=== PATIENT | female | born 1960 | race Caucasian/White ===

== ENCOUNTER 2023-03-06 01:43 | Outpatient (CLI) | payer OTHER, SELFPAY ==
[2023-03-06 11:18] LABS: HCT 44.3 % (36.0-46.0); HGB 15.4 g/dL (11.2-15.7); MCH 31.6 pg (27.0-33.0); MCHC 34.8 % (32.0-36.0); MCV 91 fL (80-95); MPV 10.2 fL (8.0-11.0); Platelet Count 321 10^3/uL (130-400); RBC 4.88 10^6/uL (3.93-5.22); RDW 12.9 % (11.7-14.6); RDW-SD 42.7 fL; WBC 9.06 10^3/uL (4.4-10.8)
[2023-03-06 11:50] LABS: Anion Gap 8.6 mmol/L (3-11); BUN 19 mg/dL (7-18); CO2 29.4 mmol/L (21.0-32.0); Calcium 9.6 mg/dL (8.5-10.1); Chloride 102 mmol/L (98-107); Glucose 91 mg/dL (74-106); Potassium 3.9 mmol/L (3.5-5.1); Sodium 140 mmol/L (136-145)
== END 2023-03-06 01:44 | disposition home or self-care (01) ==
LOC: LBO 01:43
PROVIDERS: Visit Provider Student in an Organized Health Care Education/Training Program
DX: M25.562 Pain in left knee (principal); M17.12 Unilateral primary osteoarthritis, left knee; Z01.818 Encounter for other preprocedural examination; Z01.812 Encounter for preprocedural laboratory examination
CPT/HCPCS: 36415; 80048; 85027

== ENCOUNTER 2023-03-06 10:37 | Outpatient (CLI) | payer OTHER, SELFPAY ==
--- NOTE | 2023-03-06 10:00 | DI.RAD_ITS ---
Exam(s) XR STANDING ALIGNMENT EXAM: XR STANDING ALIGNMENT CLINICAL HISTORY: TKR planning. TECHNIQUE: 2D digital imaging was performed. Four images were obtained. COMPARISON: DX XR KNEE 4V LT* from 03/21/2022 DX XR KNEE 4V RT* from 03/21/2022 FINDINGS: BONES: The hips are well maintained. There moderate severe degenerative changes of the knees bilater ally. Findings include joint space narrowing and periarticular spurring which is most marked in the medial femoral tibial joint. Chondrocalcinosis in the medial femoral tibial joints is noted bilatera lly which can be seen with CPPD arthropathy. The ankles are well maintained.There is no significant leg length discrepancy. SOFT TISSUE: Normal. IMPRESSION: Moderately severe osteoarthritis of the knees bilaterally. DATA REPOSITORY: RADIATION DOSE DELIVERED:
== END 2023-03-06 10:38 | disposition home or self-care (01) ==
LOC: DIORS 10:38
PROVIDERS: PCP Nurse Practitioner Family; Referring Provider Nurse Practitioner Family; Visit Provider Physician Assistant
DX: M17.12 Unilateral primary osteoarthritis, left knee (principal)
CPT/HCPCS: 77073

== ENCOUNTER 2023-03-12 07:12 | Day surgery (SDC) | payer OTHER, SELFPAY ==
[2023-03-12] VITALS (10 sets, daily range): BP systolic 88–159; BP diastolic 32–69; PULSE 57–70; RESP 12–18; TEMP 36.1–36.6; O2SAT 93–97; BMI 40.5
[2023-03-12] MEDS: Celecoxib 200 MG CAP 400 MG PO (07:42)
[2023-03-12] MEDS: Gabapentin 300 MG CAP PO (07:43)
[2023-03-12] MEDS: Acetaminophen 500 MG TAB 1000 MG PO ×2 (07:43→15:36)
[2023-03-12] MEDS: Lactated Ringers 1,000 ML 80 ML IV (07:53)
--- NOTE | 2023-03-12 09:52 | W.ANESPRE ---
General Info Date of Service Date Performed: 03/12/23 Height: 5 ft 2 in Weight: 100.5 kg Body Mass Index (BMI): 40.5 Surgical Procedure: Operation Date: 03/12/23 10:10 Proposed Procedure Side Surgeon p Knee Total Arthroplasty w/OrthAlign, Cementless CR Left Felix Qureshi MD Meds Allergies and Home Medications Allergies Allergy/AdvReac Type Severity Reaction Status Date / Time No Known Allergies Allergy Verified 03/12/23 07:34 Home Medication Medication Instructions Recorded chlorthalidone 25 mg tablet 12.5 mg PO DAILY 01/23/23 evening primrose oil 500 mg capsule 1,000 mg PO DAILY 01/23/23 fluoxetine 40 mg capsule 80 mg PO DAILY 01/23/23 lisinopril 20 mg tablet 20 mg PO DAILY 01/23/23 omega-3 fatty acids 1,000 mg 1,000 mg PO DAILY 01/23/23 capsule omeprazole 20 mg capsule,delayed 20 mg PO DAILY 01/23/23 release potassium chloride 10 mEq 10 meq PO DAILY 01/23/23 capsule,extended release semaglutide 7 mg tablet (Rybelsus) 7 mg PO DAILY 01/23/23 Current Visit Medications: Current Medications Generic Name Dose Route Start Last Admin Trade Name Freq PRN Reason Stop Dose Admin Acetaminophen 1,000 mg 03/12/23 06:00 03/12/23 07:43 Acetaminophen 500 Mg Tab PO 03/12/23 18:00 1,000 mg PREOP NEPTALI Administration Celecoxib 400 mg 03/12/23 06:00 03/12/23 07:42 Celecoxib 200 Mg Cap PO 03/12/23 18:00 400 mg PREOP NEPTALI Administration Gabapentin 300 mg 03/12/23 06:00 03/12/23 07:43 Gabapentin 300 Mg Cap PO 03/12/23 18:00 300 mg PREOP NEPTALI Administration Tranexamic Acid 1,000 mg/ 60 mls @ 360 mls/hr 03/12/23 06:00 Sodium Chloride IVPB 03/12/23 18:00 PREOP NEPTALI Ringer's Solution 1,000 mls @ 80 mls/hr 03/12/23 06:00 03/12/23 07:53 IV 04/10/23 23:59 80 mls/hr INFUSION NEPTALI Administration Cefazolin Sodium/Dextrose 2 gm in 50 mls @ 100 mls/hr 03/12/23 06:00 Ancef Duplex IVPB 03/12/23 16:00 PREOP NEPTALI IV Miscellaneous Supplies 1 each 03/12/23 06:00 Iv Access IV 04/10/23 23:59 DIRECTED NEPTALI Sodium Chloride 0 ml 03/12/23 06:00 Normal Saline Flush 10 Ml Syr IV 04/10/23 23:59 PRN PRN Sodium Chloride 0 ml 03/12/23 06:00 Normal Saline 10 Ml Vial IJ 04/10/23 23:59 DIRECTED PRN Sterile Water 0 ml 03/12/23 06:00 Water,Injection,Sterile 10 Ml Vial IJ 04/10/23 23:59 DIRECTED PRN PFSH Active Problems Active Problems: Problem Status Onset Code Hypertension I10 Depression F32.A Obesity E66.9 GERD (gastroesophageal reflux disease) K21.9 Localized osteoarthritis of right knee M17.11 Unilateral primary osteoarthritis, left knee M17.12 Medical History Medical History Comments:: Pt. stated when she had her hernia repair, she was told it was hard to wake her up Surgical History Surgical History History of LAVH Hx of appendectomy Hx of cholecystectomy Hx of hernia repair Tobacco Smoking/Tobacco Use Status: Never Alcohol Alcohol Intake: current Alcohol intake frequency: holidays/special occasions only Alcohol type: hard liquor Substance Use Substance use: Never Substance use type: does not use Vital Signs and Lab Results Vital Signs Most Recent Vital Signs in EMR: Most Recent Vital Signs Temp Pulse Resp BP Pulse Ox 36.3 C L 70 17 159/64 H 96 03/12/23 07:15 03/12/23 07:15 03/12/23 07:15 03/12/23 07:15 03/12/23 07:15 Lab Results Blood Type / Crossmatch: No Data to Display Complete Blood Count: White Blood Count 9.06 10^3/uL (4.4-10.8) 03/06/23 11:00 Red Blood Count 4.88 10^6/uL (3.93-5.22) 03/06/23 11:00 Hemoglobin 15.4 g/dL (11.2-15.7) 03/06/23 11:00 Hematocrit 44.3 % (36.0-46.0) 03/06/23 11:00 Platelet Count 321 10^3/uL (130-400) 03/06/23 11:00 Complete Metabolic Panel: Sodium 140 mmol/L (136-145) 03/06/23 11:00 Potassium 3.9 mmol/L (3.5-5.1) 03/06/23 11:00 Chloride 102 mmol/L (98-107) 03/06/23 11:00 Carbon Dioxide 29.4 mmol/L (21.0-32.0) 03/06/23 11:00 BUN 19 mg/dL (7-18) H 03/06/23 11:00 Creatinine 1.0 mg/dL (0.55-1.02) 03/06/23 11:00 Est GFR (CKD-EPI 2020) 63.30 (mL/min/1.73m2) 03/06/23 11:00 Calcium 9.6 mg/dL (8.5-10.1) 03/06/23 11:00 Glucose 91 mg/dL (74-106) 03/06/23 11:00 Liver Function Panel: No Data to Display Coagulation Panel: No Data to Display Cardiac Panel: No Data to Display Arterial Blood Gas: No Data to Display Venous Blood Gas: No Data to Display Pancreas Panel: No Data to Display Thyroid Panel: No Data to Display Infectious Disease: No Data to Display Blood Cultures: No Data to Display Toxicology Panel: No Data to Display Anesthesia Assessment and Plan Anesthesia History Personal History: Delayed Emergence and Other Family History: No Family History of Anesthesia Complications Exercise Tolerance Exercise Tolerance: Metabolic Equivalents>4 Cardiac & Pulmonary Exam Cardiac Exam: Normal S1/S2 Heart Sounds Pulmonary Exam: Clear Bilateral Breath Sounds Implantable Cardiac Device Does patient have a Pacemaker or an ICD?: No Airway Exam Known Difficult Airway: No Mallampati Class: 1 Mouth Opening: Normal (> 3cm) Thyromental Distance: Greater than 3 cm Neck Range of Motion: Full ROM Neck Circumference: Normal Teeth Condition: Normal Dentition ASA Classification ASA Score: ASA 3 Emergency Case?: No NPO Status NPO Status: NPO Clears >2 hours, Solids >8 hours Anesthesia Plan Resuscitation Status: Full Code Anesthesia Technique: Spinal Anesthesia Airway Planned: Natural Airway Pain Management: Surgeon and patient request nerve block Monitors Used: Standard Monitors Preoperative Comments:: 63 yo female for TKA. Sig PMHx: HTN, GERD (on alternating other day PPI/H2), never smoker, occ EtOH. Previous Anes: - none her, stated at [facility] long time to wake up.
--- NOTE | 2023-03-12 11:26 | PDOC.DSDIS_ITS ---
Date of service: 03/12/23 Time of Service: 11:26 Discharge Plan Disposition Patient Disposition: Home Condition: Good Discharge Details Reason For Visit: L TKR Attending Provider: Felix Qureshi Primary Care Provider: Anna Mcfarlane Home Meds and New Rx's Prescriptions: New celecoxib 200 mg capsule 200 mg PO BID Qty: 60 0RF aspirin 81 mg tablet,delayed release (DR/EC) 81 mg PO BID Qty: 60 0RF acetaminophen 500 mg tablet 1,000 mg PO TID Qty: 90 3RF dexamethasone 4 mg tablet 4 mg PO DAILY Qty: 2 0RF gabapentin 300 mg capsule 300 mg PO QHS Qty: 14 0RF oxycodone 5 mg tablet 5 mg PO Q4H MDD 6 tabs PRN (Reason: pain) Qty: 20 0RF Continued lisinopril 20 mg tablet 20 mg PO DAILY chlorthalidone 25 mg tablet 12.5 mg PO DAILY omeprazole 20 mg capsule,delayed release(DR/EC) 20 mg PO DAILY fluoxetine 40 mg capsule 80 mg PO DAILY Rybelsus 7 mg tablet 7 mg PO DAILY potassium chloride 10 mEq capsule, extended release 10 meq PO DAILY evening primrose oil 500 mg capsule 1,000 mg PO DAILY Rx Instructions: give with meal/snack omega-3 fatty acids 1,000 mg capsule 1,000 mg PO DAILY Discharge Instructions Additional Instructions: Total Knee Discharge Instructions Activity: The most important activity is to walk and to work on gentle motion (both flexion and extension). You should try to take short walks a few times a day. It is important that when resting you work on keeping the knee straight. Avoid putting a pillow behind the knee as this will encourage flexion. Work on range of motion exercises as provided by Physical Therapy. - Start outpatient physical therapy within 2 weeks. - You should wear the KAYLA hose on both legs for 2 weeks. You may remove these at night. You may also use any compression sock in place of the KAYLA hose. - Utilize [employer] to review exercises, see videos on exercises and obtain basic information pertaining to your surgery and your recovery. Dressing: Remove the Je wrap by 2 days after your surgery and put on the KAYLA stocking given to you from the hospital. Keep the surgical dressing (underneath the JE wrap) in place for at least one week. After the first week it may be removed and replaced with light gauze and tape or nothing. The wound and dressing may get wet after 3 days but avoid soaking the dressing or otherwise it will need to be changed. Many people prefer covering the dressing with cling wrap (saran wrap) to minimize it from getting soaked. If it gets wet, just pat dry. If it starts to peel off then it will need to be changed. Medications: - You should take Tylenol and anti-inflammatory Celebrex as your primary pain control medications. If the Celebrex is too expensive or not covered, please call the office for another alternative (Advil/Ibuprofen or Naproxen/Aleve) - You have been prescribed a stronger pain medication Oxycodone for breakthrough pain, take as needed as prescribed. - You will continue your omeprazole to help reduce stomach acid and reflux. - You have been prescribed Gabapentin to take at night for restlessness and nerve pain. - You will be taking Aspirin 81mg twice a day for DVT prevention unless instructed otherwise. - You have also been prescribed Decadron to take to control post-operative nausea and pain. You will start this tomorrow. - If you have constipation you should take Colace or Miralax (both [id number]). It takes most people 3-4 days to have a bowel movement. Follow-up: 2 weeks If you have any acute concerns or questions, please do not hesitate to contact the office at [phone]. You may contact Dr. Qureshi with any questions after hours through the hospital at [phone] or on his cell phone at [phone]. Stand Alone Forms: Anesthesia Discharge Inst., Deyas.Nerve Block Instructions, Minh Fischer ([facility]) Referrals: Felix Qureshi MD [ [facility] STAFF PHYSICIAN] - Equipment/Supplies: Walker Activity:: Activity as Tolerated Shower/Bathe:: 72 hours Diet:: As Tolerated Discharge Orders Discharge Orders: Discharge Order (Routine); Ordered 03/12/23 Ordered By: Guanaco Campos DS: Diagnosis Discharge Diagnosis (1) Unilateral primary osteoarthritis, left knee: Status: Acute
[2023-03-12] MEDS: ceFAZolin 2 GM/50 ML BAG IVPB (11:40)
--- NOTE | 2023-03-12 13:09 | W.ANESNERVE ---
Nerve Block Single Injection Procedure Date and Time Date Performed: 03/12/23 Procedure Start: 11:18 Location Where Procedure Performed Procedure Location: Day Surgery Unit Reason Performed: Postoperative Analgesia Requesting Provider: Felix Qureshi Timeout Performed Timeout Performed: Yes Monitoring Used ECG, Blood Pressure, SpO2 and See EMR for corresponding vital signs Sterility Sterility: Hand Hygiene, Surgical Cap, Surgical Mask, Sterile Gloves and Chlorhexidine Sedation Given During Procedure Sedation Given (Indicate Dose Given): Versed IV Dose:: 2mg Patient Mental Status Patient Mental Status: Sedate with meaningful communication Nerve Block 1st Nerve Block: Laterality: Left Block Type: Adductor Canal Ultrasound Image Saved?: Yes Needle / Catheter Used: 100mm SonoPlex II Local Anesthetic Bolus (Indicate Dose Given): None, Lidocaine used for local infiltration of skin, Injected in 3-5ml increments after negative blood aspiration and Bupivacaine 0.25% Dose:: 15 mL Additives (Indicate Dose Given): None Ultrasound: Sterile probe cover and gel used Nerve Stimulator: Supplement to Ultrasound use and No twitch or parasthesia noted < 0.5 mA Paresthesia: None Procedure Tolerated: No Complications Procedure Outcome: Successful Performed By: Gem Ramos Other (not listed above): First attempt by CLARE Stuart then completed by Gem Ramos CRNA.
--- NOTE | 2023-03-12 14:32 | W.ANESPOSTOP ---
Postoperative Evaluation Date, Time and Location Date Performed: 03/12/23 Time Performed: 14:32 Patient Location: PACU Vital Signs Most Recent Imported Vital Signs: Most Recent Vital Signs Temp Pulse Resp BP Pulse Ox 36.5 C 59 L 12 120/51 L 97 03/12/23 14:19 03/12/23 14:19 03/12/23 14:19 03/12/23 14:19 03/12/23 14:19 Pain Score Most Recent Pain Score: Most Recent Pain Score Pain Level 0 03/12/23 14:19 Assessment Mental Status: Awake (Alert & Oriented to Patient Baseline) Airway and Respiratory Function: Patent airway with normal (patient baseline) respiratory exam Cardiovascular Function: Hemodynamically Stable Hydration Status: Adequately Hydrated Nausea & Vomiting: No Nausea or Vomiting Pain: Pt. Denies Any Pain Peripheral Nerve Block: Patient did not receive a nerve block
[2023-03-12] MEDS: oxyCODONE 5 MG TAB PO (15:37)
--- NOTE | 2023-03-12 15:56 | PT.INIE ---
PT Notes Visit Reasons: L TKR Physical Therapy Day Surgery Initial Evaluation Date: 03/12/2023 Referring Doctor: LETY Ch PT Orders: PT CONSULT: S/P Ortho Surgery Precautions: WBAT on the left LE with AD. Patient Profile/Admitting Diagnosis: Leslye is a 63-year-old female with primary unilateral osteoarthritis of the left knee and is status post left total knee arthroplasty on postoperative day 0. PMHX: Unilateral primary OA of the L knee Social History/Home Situation: Lives alone in a private home with 3 steps to enter with rails on both sides. Daughter Gwendolyn will be with her mother as patient recovers at home. Equipment Owned/DME: None Subjective: Reports pain on the quadriceps muscle on her thigh, rates pain level at 4/10 at rest and 2/10 with walking activity Objective: General Observation: Seated on bedside chair. KODI wraps to L: LE. Cryocuff to L knee. TEDS to R leg. Mental Status: Alert and oriented x4 Pain: As above ROM: Right Lower Extremity: Hip flexion WFL. Hip abduction WFL. Knee flexion WFL. Ankle dorsiflexion WFL. Ankle plantarflexion WFL. Left Lower Extremity: Hip flexion WFL. Hip abduction WFL. Knee flexion -45 to 90 degrees. Extension -45 degrees . Ankle dorsiflexion WFL. Ankle plantarflexion WFL. Strength: Right Lower Extremity: Hip flexors 4/5. Hip abductors 4/5. Knee flexors 3-/5. Knee extensors 3-/5. Ankle dorsiflexors 4/5. Ankle plantarflexors 4/5. Left Lower Extremity:Hip flexors 5/5. Hip abductors 5/5. Knee flexors 5/5. Knee extensors 5/5. Ankle dorsiflexors 5/5. Ankle plantarflexors 5/5 Sensation: Intact as to pain and light pressure in B LE Bed Mobility/Transfers: Sit to stand contact-guard assist Stand to sit standby assist Bed to chair standby assist Gait: Tolerated level surface ambulation of 150 feet using front wheeled walker with step to gait pattern requiring contact-guard assist. Reports decreasing pain report in the anterior distal thigh down to 2/10. No SOB. No LOB. Nurse Vandana assisting with wheelchair follow for safety. Balance: Static Sitting: Normal Dynamic Sitting: Normal Static Standing: Fair Dynamic Standing: Fair Special Tests: Mobility Limitations Standardized Measure [facility] AM-PAC 6 clicks Basic Mobility Inpatient Short Form: Raw Score: 21 CMS Score: 29% deficit Informed Consent/Education: Patient instructed in purpose of PT consult. Packet containing TKA exercise protocol has been given to patient. Education and training on initial set of exercises that can be done at home have been completed with patient. SREEDHAROR RE-ED: Facilitated postopreative engagement of B LE musculature to safely perform bed mobility, transfers, level surface ambulation, and stair negotiation using FWW. Instructed patient and daughter with correct and safe performance of all exercises for the first 2 weeks to maintain joint flexibility, glutes facilitate incisional healing, and wound progress mobility level: Access Code: [email or web address] URL: [email or web address] Date: 03/12/2023 Prepared by: Bambi Fernandes Exercises - Supine Quadricep Sets - 1 x daily - 7 x weekly - 1 sets - 10 reps - 5 hold - Supine Heel Slide - 1 x daily - 7 x weekly - 1 sets - 10 reps - 5 hold - Supine Ankle Pumps - 1 x daily - 7 x weekly - 1 sets - 10 reps - 5 hold - Small Range Straight Leg Raise - 1 x daily - 7 x weekly - 1 sets - 10 reps - 5 hold - Seated March - 1 x daily - 7 x weekly - 1 sets - 10 reps - 5 hold Assessment: When needed requires use of front wheeled walker to maximize independence and reduce fall risk. Patient presents with clinical signs and symptoms consistent with current/admitting diagnoses that have resulted to mobility limitations, gait instability, generalized weakness, and impairment of motor control as demonstrated by the following impairment level findings: 1. Decreased strength to left knee major muscle groups 2. Impaired standing balance 3. Limitation of joint range of motion in left knee Impairments are contributing to the following functional limitations: 1. Inability to safely ambulate without assistive device 2. Increase completion time for mobility ADL performance 3. Increased fall risk Patient is assessed as a 76301 moderate complexity based on the following: History: 63-year-old female with impairment level findings, functional limitations, and past medical history as indicated above Examination: Demonstrable impairment in strength, balance, and mobility level with underlying impairments and functional limitations as documented above Presentation: Evolving Decision Makin moderate complexity Goals: N/A. PT evaluation and 1-2 treatment sessions only for functional mobility training using recommended AD and for HEP instruction. Plan of Care/Treatment Plan: N/A. PT evaluation and 1-2 treatment session only for functional mobility training using recommended AD and for HEP instruction. DISCHARGE RECOMMENDATIONS: Home when medically cleared by orthopedic surgeon. Recommend outpatient physical therapy services in order to optimize functional mobility outcomes and facilitate return to independent community ambulation without an assistive device. TREATMENT CODE/TIME: 08442 x 20 minutes, 65222 x 17 minutes beginning at 16:00 PM. Thank you for the opportunity to participate in the care of this patient. Bambi Fernandes PT, DPT, CLT [facility] [place], [place]
--- NOTE | 2023-03-12 17:10 | W.PM.OP ---
Date of service: 03/12/23 Time of Service: 13:15 Operative Note Operative Note DATE OF PROCEDURE: 03/12/23 PRE-OP DIAGNOSIS: Left Knee Osteoarthritis POST-OP DIAGNOSIS: same PROCEDURE: Left Total Knee Replacement with Intraoperative Navigation SURGEON: Felix Qureshi LADLE REPAIRMAN: Emilee Campos ANESTHESIA TYPE: General LMA/ETT and Spinal Refer to Anesthesia Record ESTIMATED BLOOD LOSS: 250 PATHOLOGY: none sent TOURNIQUET TIME: 0 COMPLICATIONS: None Patient was transported to: PACU Patient's condition: stable Implants: 1. Depuy Attune Cementless Cruciate Retaining Femoral Component, Size 6 Narrow 2. Depuy Attune Cementless Fixed Bearing Tibial Component, Size 4 3. Depuy Attune 6x6mm CR/FB Poly 4. Depuy Attune Patellar Component, Size 35 Indications: I have seen Ny in clinic for symptoms of LEFT knee arthritis, confirmed with radiographic findings. Ny has exhausted nonoperative methods and was having significant limitations in daily function and desired better function and less pain. I discussed the technical details of a knee replacement. I explained the risks of the procedure to include, but not limited to, bleeding, infection, pain, stiffness, fracture, damage to nerves and vessels, damage to muscles and tendons, loosening, need for repeat procedure, blood clot and cardiopulmonary demise. Despite these risks, she elected to proceed. Findings: There was significant signs of arthritis throughout the knee with large osteophytes throughout. Procedure Description: Ny was greeted in the preoperative holding area where the correct side was identified and marked. The consent was reviewed with the patient and signed. The history and physical was updated. All questions were answered. Preoperative mediacations were administered: Acetaminophen 1000mg, Celebrex 400mg, and Gabapentin 300mg. An adductor canal block was then administered by the anesthesia team in the PACU. She was taken back to the operating room. A general anesthestic was then administered. The patient was placed into the supine position on the operating room table. A nonsterile tourniquet was placed high onto the leg. Posts were placed for positioning during the procedure. All bony prominences were well padded. Prophylactic antibiotics in the form of Cefazolin were administered. 1g of Tranxemic Acid was given intravenously within 30 minutes of incision. The left leg was then prepped with Chloraprep and draped in a standard fashion with impervious stockinette. A second prep with Chloraprep was performed prior to application of Iodine impregnated skin protection. A timeout to confirm correct identity, side and site, procedure, allergies, anesthesia, and medical concerns was performed. With the knee in some flexion, a midline incision was made overlying the knee. Full thickness skin flaps were raised once the extensor mechanism was encountered. These were raised medially and laterally. Any bleeding was controlled with electrocautery. Once the extensor mechanism was fully exposed, a medial parapatellar arthrotomy was performed in a flexed position. All bleeding from the arthrotomy and the geniculate arteries was coagulated. A medial subperiosteal peel was performed with electrocautery to the midcoronal plane. Due to the significant varus deformity the entire medial tibial plateau was exposed. The fat pad was removed while keeping the patellar tendon protected. The anterior distal femur synovium was removed for later visualization. The ACL and PCL were resected and the anterior horn of the lateral meniscus was transected. The knee was then flexed with the patella everted. Large osteophytes from the tibia were removed. Large osteophytes from the femur were removed. A single starting pin was then placed 1cm anterior to the PCL insertion and the notch in the direction of the femoral head. The OrthoAlign device was applied over the pin. It was oriented to be in line with the epicondylar axis and the trochlear groove. It was then pinned into place. The navigation computer was then turned on and calibrated. The distal femur cut was set at 0 degrees varus/valgus and 3 degrees flexion. The distal femur cutting guide then was positioned for a 9mm cut. The distal femur was cut with an oscillating saw while protecting the soft tissues. The tibia was then addressed. The OrthoAlign device was placed over the tibial tubercle and medial tibia and secured into position. Once again, OrthoAlign was calibrated and then set for a 2 deg varus cut and 6 degrees of posterior slope. With this locked into position, the cut thickness stylus was used to assess cut thickness. The medial side, most involved side, was set for a 4mm cut. This was then held in position and pinned into place with 2 additional pins and a cross pin for stability. The medial and lateral collateral ligaments were protected and the cut was performed. With this completed, it was assessed and noted to be of appropriate dimensions. The guide and OrthoAlign was removed. A spacer block was inserted and the knee was brought into extension to ensure enough space was present. The femur was then sized as a size 6 narrow. The Orthoalign gap balancing device was then placed in extension. This was used to ensure that the ligaments were properly balanced with up to 2 to 3 mm laxity laterally compared medially. The extension gap was measured as 18mm. The knee was then brought into 90 degrees of flexion and the ligament global sales executive was once again placed. Under the same amount of force the flexion gap was measured. The attending specific jig was placed and the flexion gap was made to match the extension gap. The 4-in-1 cutting guide was the placed. An fritz wing was used to confirm appropriate position of the anterior cut to avoid notching. This cutting guide was ensured to be flush on the cut surface and then pinned into place with headed pins. While protecting the soft tissues, quad tendon, and collateral ligaments, the anterior and posterior cuts were performed with a saw. The central two pins were removed and the posterior and anterior chamfers were cut next. The notch-cutting guide was placed. This was pinned to lateralize the femoral component as much as possible while keeping it flush on the cut surface. This was then pinned into position. A saw was used to make the notch cut. A rasp smoothed the cut surfaces. The medial and lateral menisci were removed. A trial femoral component was then inserted, impacted down to the cut surfaces, and the lug holes were drilled. A provisional trial tibial component was placed and the knee was brought through range of motion. There was noted to be excellent extension and flexion. There was no significant instability. The patella was tracking without thumbs. A size 6mm polyethylene component provided the best range of motion and stability with less than 2mm gapping with medial and lateral stress and full extension without significant hyperextension. The tibial cut surface was fully exposed. The tibia was then sized as a 4. The tibia had been previously marked during trialing to correspond to the center of the tibial component to help with rotation. The trial was aligned to this emilee, approximately rotated to the medial 1/3rd of the tibial tubercle. The trial was pinned into place. The tibia was prepared with a reamer and a keel punch and lug holes. The knee was then brought into extension and the patella was measured as 23mm. Using the patellar clamp and cut guide, this was resected to a flat surface with at least 13mm of thickness remaining. The size 35 patella fit the best. This was oriented and then clamped into position. The lugs were drilled. The trial components were removed. The final components were opened on the back table. The periosteal and capsular tissues, especially posteriorly, around the knee were then systematically injected with a periarticular cocktail consisting of 246mg of Ropivacaine, 0.5mg of Epinephrine, 0.08mg of Clonidine, and 30mg of Ketorolac, diluted to 100cc. On the back table, with the implants opened, the cement was mixed. One batch of high viscosity cement was prepared with vacuum assistance. After the cement was ready a small amount was placed on the cut surface of the patella and the patellar button was clamped into position and held. While the cement was hardening, the cementless knee components were placed. Starting with the tibial component, the tibia was subluxed anteriorly and the lug holes of the component were lined up. The tibia was then impacted with an impactor and mallet until the tibial component was in contact with the tibia. The final polyethylene component was inserted. Then, the femoral component was inserted. The lug holes were aligned and the component was impacted into position. The knee was irrigated with Surgiphor Betadine solution. This was allowed to sit in the knee for 3 minutes and then it was thoroughly irrigated out with saline. After the cement had finally cured, approximately 15min, the clamp was removed from the patella and the knee was taken through range of motion. The patella was tracking with a no-thumbs technique. The capsule was then reapproximated with a No. 1 Vicryl at multiple locations. The capsule was finally closed with a No. 2 Stratafix, barbed suture. Deep tissues were then reapproximated with 0 Vicryl and 2-0 Vicryl. The skin was closed with a running 3-0 Monocryl in a subcuticular fashion. This was reinforced with skin glue. A Mepilex silver dressing was applied along with a [id number] KODI wrap. A CryoCuff was applied. Ny was transferred to the hospital bed without difficulty an suffering no apparent complication. She has a good prognosis. Physical therapy will start today and without restrictions, weight-bearing as tolerated. Aspirin 81mg BID will be used for DVT prophylaxis.
== END 2023-03-12 17:11 | disposition home or self-care (01) ==
PROVIDERS: PCP Nurse Practitioner Family; Visit Provider Student in an Organized Health Care Education/Training Program
PROC: (CPT 27447; principal; 2023-03-12 10:00)
DX: M17.12 Unilateral primary osteoarthritis, left knee (principal)
CPT/HCPCS: 27447; 20985; 76942; 97112; 97162; J0690; J1100; J2250; J2405; J2704

== ENCOUNTER 2023-03-27 11:44 | Outpatient (CLI) | payer OTHER, SELFPAY ==
--- NOTE | 2023-03-27 09:45 | DI.RAD_ITS ---
Exam(s) XR KNEE LT 1V XR STANDING ALIGNMENT EXAM: XR STANDING ALIGNMENT and XR knee LT 1 V CLINICAL HISTORY: 1ST POST OP L TKA. TECHNIQUE: 2D digital imaging was performed. Five images were obtained. COMPARISON: DX XR KNEE 4V LT* from 03/21/2022 DX XR KNEE 4V RT* from 03/21/2022 CR XR STANDING ALIGNMENT from 03/06/2023 FINDINGS: BONES: The hips are well maintained. Since the prior examination the patient has undergone a left to amador knee replacement. Orthopedic hardware appears in good position. The soft tissues are unremarkab le. There is no evidence of hardware failure. The bones are intact. There are marked degenerative changes seen in the right knee with joint space narrowing and periarticular spurring. The findings a re most marked in the medial femoral tibial joint. Chondrocalcinosis is present which can be seen wi th CPPD arthropathy. The ankles are well maintained.The left lower extremity measures 88.9 cm. The right lower extremity measures 87.7 cm. SOFT TISSUE: Normal. IMPRESSION: 1. Status post left total knee replacement. 2. Marked degenerative changes of the right knee. DATA REPOSITORY: RADIATION DOSE DELIVERED:
== END 2023-03-27 11:45 | disposition home or self-care (01) ==
LOC: DIORS 11:44
PROVIDERS: PCP Nurse Practitioner Family; Referring Provider Nurse Practitioner Family; Visit Provider Physician Assistant
DX: Z96.652 Presence of left artificial knee joint (principal); M17.12 Unilateral primary osteoarthritis, left knee; Z47.1 Aftercare following joint replacement surgery
CPT/HCPCS: 73560; 77073

== ENCOUNTER 2023-06-09 02:27 | Outpatient (CLI) | payer OTHER, SELFPAY ==
[2023-06-09 08:37] LABS: HCT 43.1 % (36.0-46.0); HGB 14.8 g/dL (11.2-15.7); MCH 30.8 pg (27.0-33.0); MCHC 34.3 % (32.0-36.0); MCV 90 fL (80-95); MPV 9.9 fL (8.0-11.0); Platelet Count 304 10^3/uL (130-400); RBC 4.81 10^6/uL (3.93-5.22); RDW 12.2 % (11.7-14.6); RDW-SD 40.3 fL; WBC 7.16 10^3/uL (4.4-10.8)
[2023-06-09 09:35] LABS: Anion Gap 8.9 mmol/L (3-11); BUN 19 mg/dL (7-18); CO2 29.1 mmol/L (21.0-32.0); Calcium 9.6 mg/dL (8.5-10.1); Chloride 100 mmol/L (98-107); Glucose 103 mg/dL (74-106); Potassium 3.7 mmol/L (3.5-5.1); Sodium 138 mmol/L (136-145)
== END 2023-06-09 02:28 | disposition home or self-care (01) ==
LOC: LBO 02:27
PROVIDERS: PCP Nurse Practitioner Family; Visit Provider Student in an Organized Health Care Education/Training Program
DX: M17.11 Unilateral primary osteoarthritis, right knee (principal); Z01.812 Encounter for preprocedural laboratory examination
CPT/HCPCS: 36415; 80048; 85027

== ENCOUNTER 2023-06-18 07:17 | Day surgery (SDC) | payer OTHER, SELFPAY ==
[2023-06-18] VITALS (10 sets, daily range): BP systolic 96–176; BP diastolic 38–78; PULSE 62–72; RESP 12–18; TEMP 36.2–36.7; O2SAT 94–97; BMI 41.1
--- NOTE | 2023-06-18 07:53 | W.ANESPRE ---
General Info Date of Service Date Performed: 06/18/23 Height: 5 ft 2 in Weight: 102.1 kg Body Mass Index (BMI): 41.1 Surgical Procedure: Operation Date: 06/18/23 09:40 Proposed Procedure Side Surgeon p Knee Total Arthroplasty, OrthAlign, Cementless CR, (6 femur, 4 tibia) Right Felix Qureshi MD Pre-Op Diagnosis Post-Op Diagnosis R TKR Meds Allergies and Home Medications Allergies Allergy/AdvReac Type Severity Reaction Status Date / Time No Known Allergies Allergy Verified 06/18/23 07:34 Home Medication Medication Instructions Recorded chlorthalidone 25 mg tablet 12.5 mg PO DAILY 01/23/23 evening primrose oil 500 mg capsule 1,000 mg PO DAILY 01/23/23 fluoxetine 40 mg capsule 80 mg PO DAILY 01/23/23 lisinopril 20 mg tablet 20 mg PO DAILY 01/23/23 omega-3 fatty acids 1,000 mg 1,000 mg PO DAILY 01/23/23 capsule omeprazole 20 mg capsule,delayed 20 mg PO DAILY 01/23/23 release potassium chloride 10 mEq 10 meq PO DAILY 01/23/23 capsule,extended release semaglutide 7 mg tablet (Rybelsus) 7 mg PO DAILY 01/23/23 acetaminophen 500 mg tablet 1,000 mg PO TID #90 tabs 06/18/23 aspirin 81 mg tablet,delayed 81 mg PO BID #60 tabs 06/18/23 release celecoxib 200 mg capsule 200 mg PO BID #60 caps 06/18/23 dexamethasone 4 mg tablet 4 mg PO DAILY #2 tabs 06/18/23 gabapentin 300 mg capsule 300 mg PO QHS #14 caps 06/18/23 oxycodone 5 mg tablet 5 mg PO Q4H PRN pain #20 tabs 06/18/23 Current Visit Medications: Current Medications Generic Name Dose Route Start Last Admin Trade Name Freq PRN Reason Stop Dose Admin Acetaminophen 1,000 mg 06/18/23 06:00 Acetaminophen 500 Mg Tab PO 06/18/23 16:00 PREOP NEPTALI Acetaminophen 1,000 mg 06/18/23 07:24 Acetaminophen 500 Mg Tab PO 07/18/23 07:23 TID PRN PRN Analgesia Celecoxib 400 mg 06/18/23 06:00 Celecoxib 200 Mg Cap PO 06/18/23 16:00 PREOP NEPTALI Docusate Sodium 100 mg 06/18/23 07:24 Docusate Sodium 100 Mg Cap PO 07/18/23 07:23 BID PRN PRN Constipation Gabapentin 300 mg 06/18/23 06:00 Gabapentin 300 Mg Cap PO 06/18/23 16:00 PREOP NEPTALI Tranexamic Acid 1,000 mg/ 60 mls @ 360 mls/hr 06/18/23 06:00 Sodium Chloride IVPB 06/18/23 16:00 PREOP NEPTALI Ringer's Solution 1,000 mls @ 80 mls/hr 06/18/23 06:00 IV 06/18/23 23:59 INFUSION NEPTALI Cefazolin Sodium/Dextrose 2 gm in 50 mls @ 100 mls/hr 06/18/23 06:00 Ancef Duplex IVPB 06/18/23 23:59 PREOP NEPTALI IV Miscellaneous Supplies 1 each 06/18/23 06:00 Iv Access IV 06/18/23 23:59 DIRECTED NEPTALI Ondansetron HCl 4 mg 06/18/23 07:24 Ondansetron 4 Mg/2 Ml Vial IVP 07/18/23 07:23 Q6H PRN PRN Nausea Oxycodone HCl 0 mg 06/18/23 07:24 Oxycodone 5 Mg Tab PO 07/18/23 07:23 Q3H PRN PRN Pain Polyethylene Glycol 17 gm 06/18/23 07:24 Polyethylene Glycol 3350 17 Gm Packet PO 07/18/23 07:23 BID PRN PRN Constipation Sodium Chloride 0 ml 06/18/23 06:00 Normal Saline Flush 10 Ml Syr IV 06/18/23 23:59 PRN PRN Sodium Chloride 0 ml 06/18/23 06:00 Normal Saline 10 Ml Vial IJ 06/18/23 23:59 DIRECTED PRN Sterile Water 0 ml 06/18/23 06:00 Water,Injection,Sterile 10 Ml Vial IJ 06/18/23 23:59 DIRECTED PRN PFSH Active Problems Active Problems: Problem Status Onset Code Hypertension I10 Depression F32.A Obesity E66.9 GERD (gastroesophageal reflux disease) K21.9 Localized osteoarthritis of right knee M17.11 Medical History Medical History Comments:: Pt. stated when she had her hernia repair, she was told it was hard to wake her up Surgical History Surgical History (Updated 06/18/23 @ 07:34 by Tamar Izaguirre RN) History of LAVH History of left knee replacement (03/12/23) Hx of appendectomy Hx of cholecystectomy Hx of hernia repair Hx of right breast implant Tobacco Smoking/Tobacco Use Status: Never Alcohol Alcohol Intake: current Alcohol intake frequency: holidays/special occasions only Alcohol type: hard liquor Substance Use Substance use: Never Substance use type: does not use Vital Signs and Lab Results Vital Signs Most Recent Vital Signs in EMR: Most Recent Vital Signs Temp Pulse Resp BP Pulse Ox 36.7 C 72 18 176/78 H 96 06/18/23 07:22 06/18/23 07:22 06/18/23 07:22 06/18/23 07:22 06/18/23 07:22 Lab Results Blood Type / Crossmatch: No Data to Display Complete Blood Count: White Blood Count 7.16 10^3/uL (4.4-10.8) 06/09/23 08:25 Red Blood Count 4.81 10^6/uL (3.93-5.22) 06/09/23 08:25 Hemoglobin 14.8 g/dL (11.2-15.7) 06/09/23 08:25 Hematocrit 43.1 % (36.0-46.0) 06/09/23 08:25 Platelet Count 304 10^3/uL (130-400) 06/09/23 08:25 Complete Metabolic Panel: Sodium 138 mmol/L (136-145) 06/09/23 08:25 Potassium 3.7 mmol/L (3.5-5.1) 06/09/23 08:25 Chloride 100 mmol/L (98-107) 06/09/23 08:25 Carbon Dioxide 29.1 mmol/L (21.0-32.0) 06/09/23 08:25 BUN 19 mg/dL (7-18) H 06/09/23 08:25 Creatinine 1.0 mg/dL (0.55-1.02) 06/09/23 08:25 Est GFR (CKD-EPI 2020) 63.30 (mL/min/1.73m2) 06/09/23 08:25 Calcium 9.6 mg/dL (8.5-10.1) 06/09/23 08:25 Glucose 103 mg/dL (74-106) 08/07/23 08:25 Liver Function Panel: No Data to Display Coagulation Panel: No Data to Display Cardiac Panel: No Data to Display Arterial Blood Gas: No Data to Display Venous Blood Gas: No Data to Display Pancreas Panel: No Data to Display Thyroid Panel: No Data to Display Infectious Disease: No Data to Display Blood Cultures: No Data to Display Toxicology Panel: No Data to Display Anesthesia Assessment and Plan Anesthesia History Personal History: No History of Anesthesia Complications Family History: No Family History of Anesthesia Complications Exercise Tolerance Exercise Tolerance: Metabolic Equivalents>4 Pertinent Negatives Pertinent Negatives: No Symptoms of GERD, No Major Cardiovascular Symptoms or Complaints and No Major Pulmonary Symptoms or Complaints Cardiac & Pulmonary Exam Cardiac Exam: Normal S1/S2 Heart Sounds Pulmonary Exam: Clear Bilateral Breath Sounds Implantable Cardiac Device Does patient have a Pacemaker or an ICD?: No Airway Exam Known Difficult Airway: No Mallampati Class: 1 Mouth Opening: Normal (> 3cm) Thyromental Distance: Greater than 3 cm Neck Range of Motion: Full ROM Neck Circumference: Normal Teeth Condition: Normal Dentition ASA Classification ASA Score: ASA 3 Emergency Case?: No NPO Status NPO Status: NPO Clears >2 hours, Solids >8 hours Anesthesia Plan Resuscitation Status: Full Code Anesthesia Technique: Spinal Anesthesia Airway Planned: Natural Airway Pain Management: Surgeon and patient request nerve block Monitors Used: Standard Monitors
[2023-06-18] MEDS: Lactated Ringers 1,000 ML 80 ML IV (07:56)
[2023-06-18] MEDS: Celecoxib 200 MG CAP 400 MG PO (07:57)
[2023-06-18] MEDS: Gabapentin 300 MG CAP PO (07:58)
[2023-06-18] MEDS: Acetaminophen 500 MG TAB 1000 MG PO (07:58)
--- NOTE | 2023-06-18 08:35 | W.ANESNERVE ---
Nerve Block Single Injection Procedure Date and Time Date Performed: 06/18/23 Procedure Start: 08:15 Location Where Procedure Performed Procedure Location: Day Surgery Unit Reason Performed: Postoperative Analgesia Requesting Provider: Felix Quresih Timeout Performed Timeout Performed: Yes Monitoring Used ECG, Blood Pressure, SpO2 and See EMR for corresponding vital signs Sterility Sterility: Hand Hygiene, Surgical Cap, Surgical Mask, Sterile Gloves and Chlorhexidine Sedation Given During Procedure Sedation Given (Indicate Dose Given): No Sedation given Patient Mental Status Patient Mental Status: Awake Nerve Block 1st Nerve Block: Laterality: Right Block Type: Adductor Canal Ultrasound Image Saved?: Yes Needle / Catheter Used: 100mm SonoPlex II Local Anesthetic Bolus (Indicate Dose Given): Lidocaine used for local infiltration of skin, Injected in 3-5ml increments after negative blood aspiration and Bupivacaine 0.25% Dose:: 20ml Additives (Indicate Dose Given): None Ultrasound: Sterile probe cover and gel used Nerve Stimulator: Not Used Paresthesia: None Procedure Tolerated: No Complications and Patient tolerated well Procedure Outcome: Successful Procedure Comment: Challenging to see needle tip due to tissue/depth but hydrodissection method used.. No paresthesia. Injected with clear observation of local in correct place. Performed By: Naren Vidal
[2023-06-18] MEDS: ceFAZolin 2 GM/50 ML BAG IVPB (09:45)
--- NOTE | 2023-06-18 12:24 | IN_ITS ---
PT Notes Visit Reasons: R TKR Inpatient Physical Therapy Evaluation Date: 06/18/2023 Referring Doctor: Guanaco Campos PT Orders: PT CONSULT: s/p RTKA WBAT Precautions:standard Patient Profile/Admitting Diagnosis: Leslye is a 63 yo female s/p right total knee replacement day 0.? She has had a left total knee replacement (03/12/2023). She has had several years of bilateral knee pain and since LTKA has had increased difficulty with right. PMHX: Had L TKA 03/12/23 with good results, hx of OA bilateral kneesAll Active Problems?(Updated 03/27/23 @ 09:48 by Delmy Parikh RN) History of left knee replacement (Acute 03/12/23) Hypertension (Chronic) Depression (Chronic) Obesity (Chronic) GERD (gastroesophageal reflux disease) (Chronic) Localized osteoarthritis of right knee (Acute) Surgical History?(Updated 03/27/23 @ 09:48 by Delmy Parikh RN) History of LAVH Hx of appendectomy Hx of cholecystectomy Hx of hernia repair Social History/Home Situation: Lives alone in a private home with 3 steps to enter with rails on both sides.? Equipment Owned/DME: RW Subjective: I'm doing great after my left so eager to get this Objective: General Observation: sitting up in bed, full conversation, right leg with cryo cuff and galen wrapped, leftTEDS, IV right hand Mental Status: A and Ox4 Pain: 1/10 ROM: Right Upper Extremity: WNL Left Upper Extremity: WNL Right Lower Extremity: knee 0-80(limited by galen wrap) Left Lower Extremity: WNL Strength: Right Upper Extremity: WNL Left Upper Extremity: WNL Right Lower Extremity: quad 2/5, ham 2/5, DF 4/5, PF 2/5, hip flex 3/5 Left Lower Extremity: WNL Sensation: decreased sensation right mid leg , and some tingling both LE Bed Mobility/Transfers: supine to sit indep with supervision for safety sit to stand at RW indep with supervision for safety stand to sit RW to chair indep with supervision for safety Stand to commode to stand (RW and grab bar) indep with supervision for safety Gait: Ambulate with RW step to gait, WBAT RLE indep with supervision for safety, 1x25', 1x150' Stairs: up and down practice stairs with SPC up with left, down with right Balance: Static Sitting: normal Dynamic Sitting: normal Static Standing: normal Dynamic Standing: fair, unable to stand on rightLE Special Tests: Mobility Limitations Standardized Measure [facility] AM-PAC 6 clicks Basic Mobility Inpatient Short Form: Raw Score: 24 CMS Score: 0% Informed Consent/Education: Patient instructed in purpose of PT consult and plan of care./Instructed, reviewed and issued HEP. Assessment: Patient is a 63 year old female referred to physical therapy services with the diagnosis of s/p Right TKA post-op day 0.. Patient presents with clinical signs and symptoms consistent with s/p Right TKA post-op day 0, as demonstrated by the following impairment level findings: decreased strength, decreased ROM, limited gait, balance and community mobility. Impairments are contributing to the following functional limitations: AMPAC score. Will recommend outpatient PT to achive maximal ROM, strength and function. Patient is assessed as a Low 51402 complexity based on the following: Plan of Care/Treatment Plan: PT IE, Functional Activity 87475 including activity to promote tissue healing, joint mobility/ROM, functional activity, HEP to address ROM, strength and ambulation, review of sit to stand extending RLE. DISCHARGE RECOMMENDATIONS: [x] Home with outpatient PT [] TREATMENT CODE/TIME: [id number] 30 min
--- NOTE | 2023-06-18 12:47 | W.PM.DSUDISC ---
Date of service: 06/18/23 Time of Service: 12:46 Discharge Plan Disposition Patient Disposition: Home Condition: Good Discharge Details Reason For Visit: R TKR Attending Provider: Felix Qureshi Primary Care Provider: Anna Mcfarlane Home Meds and New Rx's Prescriptions: New celecoxib 200 mg capsule 200 mg PO BID Qty: 60 0RF aspirin 81 mg tablet,delayed release (DR/EC) 81 mg PO BID Qty: 60 0RF acetaminophen 500 mg tablet 1,000 mg PO TID Qty: 90 3RF dexamethasone 4 mg tablet 4 mg PO DAILY Qty: 2 0RF gabapentin 300 mg capsule 300 mg PO QHS Qty: 14 0RF oxycodone 5 mg tablet 5 mg PO Q4H MDD 6 tabs PRN (Reason: pain) Qty: 20 0RF Continued lisinopril 20 mg tablet 20 mg PO DAILY chlorthalidone 25 mg tablet 12.5 mg PO DAILY omeprazole 20 mg capsule,delayed release(DR/EC) 20 mg PO DAILY fluoxetine 40 mg capsule 80 mg PO DAILY Rybelsus 7 mg tablet 7 mg PO DAILY potassium chloride 10 mEq capsule, extended release 10 meq PO DAILY evening primrose oil 500 mg capsule 1,000 mg PO DAILY Rx Instructions: give with meal/snack omega-3 fatty acids 1,000 mg capsule 1,000 mg PO DAILY Discontinued acetaminophen 500 mg tablet 1,000 mg PO TID Qty: 90 3RF Discharge Instructions Additional Instructions: Total Knee Discharge Instructions Activity: The most important activity is to walk and to work on gentle motion (both flexion and extension). You should try to take short walks a few times a day. It is important that when resting you work on keeping the knee straight. Avoid putting a pillow behind the knee as this will encourage flexion. Work on range of motion exercises as provided by Physical Therapy. - Start outpatient physical therapy within 2 weeks. - You should wear the KAYLA hose on both legs for 2 weeks. You may remove these at night. You may also use any compression sock in place of the KAYLA hose. - Utilize [employer] to review exercises, see videos on exercises and obtain basic information pertaining to your surgery and your recovery. Dressing: Remove the Je wrap by 2 days after your surgery and put on the KAYLA stocking given to you from the hospital. Keep the surgical dressing (underneath the JE wrap) in place for at least one week. After the first week it may be removed and replaced with light gauze and tape or nothing. The wound and dressing may get wet after 3 days but avoid soaking the dressing or otherwise it will need to be changed. Many people prefer covering the dressing with cling wrap (saran wrap) to minimize it from getting soaked. If it gets wet, just pat dry. If it starts to peel off then it will need to be changed. Medications: - You should take Tylenol and anti-inflammatory Celebrex as your primary pain control medications. If the Celebrex is too expensive or not covered, please call the office for another alternative (Advil/Ibuprofen or Naproxen/Aleve) - You have been prescribed a stronger pain medication Oxycodone for breakthrough pain, take as needed as prescribed. - You will continue your omeprazole to help reduce stomach acid and reflux. - You have been prescribed Gabapentin to take at night for restlessness and nerve pain. - You will be taking Aspirin 81mg twice a day for DVT prevention unless instructed otherwise. - You have also been prescribed Decadron to take to control post-operative nausea and pain. You will start this tomorrow. - If you have constipation you should take Colace or Miralax (both [id number]). It takes most people 3-4 days to have a bowel movement. Follow-up: 2 weeks If you have any acute concerns or questions, please do not hesitate to contact the office at [phone]. You may contact Dr. Qureshi with any questions after hours through the hospital at [phone] or on his cell phone at [phone]. Stand Alone Forms: Anesthesia Discharge Inst., Deyas.Nerve Block Instructions, Minh Fischer ([facility]U) Referrals: Felix Qureshi MD [ [facility] STAFF PHYSICIAN] - Equipment/Supplies: Walker Activity:: Activity as Tolerated Shower/Bathe:: 72 hours Diet:: As Tolerated Discharge Orders Discharge Orders: Discharge Order (Routine); Ordered 06/18/23 Ordered By: Felix Qureshi
--- NOTE | 2023-06-18 13:49 | W.ANESPOSTOP ---
Postoperative Evaluation Date, Time and Location Date Performed: 06/18/23 Time Performed: 13:49 Patient Location: Day Surgery Unit Vital Signs Most Recent Imported Vital Signs: Most Recent Vital Signs Temp Pulse Resp BP Pulse Ox 36.5 C 64 17 140/68 95 06/18/23 13:10 06/18/23 13:10 06/18/23 13:10 06/18/23 13:10 06/18/23 13:10 Pain Score Most Recent Pain Score: Most Recent Pain Score Pain Level 0 06/18/23 13:10 Assessment Mental Status: Awake (Alert & Oriented to Patient Baseline) Airway and Respiratory Function: Patent airway with normal (patient baseline) respiratory exam Cardiovascular Function: Hemodynamically Stable Hydration Status: Adequately Hydrated Nausea & Vomiting: No Nausea or Vomiting Pain: Pt. Denies Any Pain Peripheral Nerve Block: Regional nerve block not resolved at time of post operative discharge
--- NOTE | 2023-06-18 17:14 | W.PM.OP ---
Date of service: 06/18/23 Time of Service: 11:40 Operative Note Operative Note DATE OF PROCEDURE: 06/18/23 PRE-OP DIAGNOSIS: Right Knee Osteoarthritis POST-OP DIAGNOSIS: same PROCEDURE: Right Total Knee Replacement with Intraoperative Navigation SURGEON: Felix Qureshi CAN FILLING MACHINE OPERATOR: Emilee Campos ANESTHESIA TYPE: Spinal Refer to Anesthesia Record ESTIMATED BLOOD LOSS: 100 PATHOLOGY: none sent TOURNIQUET TIME: 0 COMPLICATIONS: None Patient was transported to: PACU Patient's condition: stable Implants: 1. Depuy Attune Cementless Cruciate Retaining Femoral Component, Size 5 2. Depuy Attune Cementless Fixed Bearing Tibial Component, Size 4 3. Depuy Attune 5x6mm CR/FB Poly 4. Depuy Attune Patellar Component, Size 35 Indications: I have seen Ny in clinic for symptoms of RIGHT knee arthritis, confirmed with radiographic findings. Ny has exhausted nonoperative methods and was having significant limitations in daily function and desired better function and less pain. I discussed the technical details of a knee replacement. I explained the risks of the procedure to include, but not limited to, bleeding, infection, pain, stiffness, fracture, damage to nerves and vessels, damage to muscles and tendons, loosening, need for repeat procedure, blood clot and cardiopulmonary demise. Despite these risks, she elected to proceed. Findings: There was significant signs of arthritis throughout the knee involving all 3 compartments. Procedure Description: Ny was greeted in the preoperative holding area where the correct side was identified and marked. The consent was reviewed with the patient and signed. The history and physical was updated. All questions were answered. Preoperative mediacations were administered: Acetaminophen 1000mg, Celebrex 400mg, and Gabapentin 300mg. An adductor canal block was then administered by the anesthesia team in the PACU. She was taken back to the operating room. A spinal anesthestic was then administered. The patient was placed into the supine position on the operating room table. A nonsterile tourniquet was placed high onto the leg. Posts were placed for positioning during the procedure. All bony prominences were well padded. Prophylactic antibiotics in the form of Cefazolin were administered. 1g of Tranxemic Acid was given intravenously within 30 minutes of incision. The right leg was then prepped with Chloraprep and draped in a standard fashion with impervious stockinette. A second prep with Chloraprep was performed prior to application of Iodine impregnated skin protection. A timeout to confirm correct identity, side and site, procedure, allergies, anesthesia, and medical concerns was performed. With the knee in some flexion, a midline incision was made overlying the knee. Full thickness skin flaps were raised once the extensor mechanism was encountered. These were raised medially and laterally. Any bleeding was controlled with electrocautery. Once the extensor mechanism was fully exposed, a medial parapatellar arthrotomy was performed in a flexed position. All bleeding from the arthrotomy and the geniculate arteries was coagulated. A medial subperiosteal peel was performed with electrocautery to the midcoronal plane. The fat pad was removed while keeping the patellar tendon protected. The anterior distal femur synovium was removed for later visualization. The ACL and PCL were resected and the anterior horn of the lateral meniscus was transected. The knee was then flexed with the patella everted. Large osteophytes from the tibia were removed. Large osteophytes from the femur were removed. A single starting pin was then placed 1cm anterior to the PCL insertion and the notch in the direction of the femoral head. The OrthoAlign device was applied over the pin. It was oriented to be in line with the epicondylar axis and the trochlear groove. It was then pinned into place. The navigation computer was then turned on and calibrated. The distal femur cut was set at 0 degrees varus/valgus and 3 degrees flexion. The distal femur cutting guide then was positioned for a 9mm cut. The distal femur was cut with an oscillating saw while protecting the soft tissues. The tibia was then addressed. The OrthoAlign device was placed over the tibial tubercle and medial tibia and secured into position. Once again, OrthoAlign was calibrated and then set for a 1 degree varus cut and 5 degrees of posterior slope. With this locked into position, the cut thickness stylus was used to assess cut thickness. The medial side, most involved side, was set for a 4mm cut. This was then held in position and pinned into place with 2 additional pins and a cross pin for stability. The medial and lateral collateral ligaments were protected and the cut was performed. With this completed, it was assessed and noted to be of appropriate dimensions. The guide and OrthoAlign was removed. A spacer block was inserted and the knee was brought into extension to ensure enough space was present. The femur was then sized as a size 5. The Orthoalign gap balancing device was then placed in extension. This was used to ensure that the ligaments were properly balanced with up to 2 to 3 mm laxity laterally compared medially. The extension gap was measured as 18mm. The knee was then brought into 90 degrees of flexion and the ligament science center display builder was once again placed. Under the same amount of force the flexion gap was measured. The attending specific jig was placed and the flexion gap was made to match the extension gap. The 4-in-1 cutting guide was the placed. An fritz wing was used to confirm appropriate position of the anterior cut to avoid notching. This cutting guide was ensured to be flush on the cut surface and then pinned into place with headed pins. While protecting the soft tissues, quad tendon, and collateral ligaments, the anterior and posterior cuts were performed with a saw. The central two pins were removed and the posterior and anterior chamfers were cut next. The notch-cutting guide was placed. This was pinned to lateralize the femoral component as much as possible while keeping it flush on the cut surface. This was then pinned into position. A saw was used to make the notch cut. A rasp smoothed the cut surfaces. The medial and lateral menisci were removed. A trial femoral component was then inserted, impacted down to the cut surfaces, and the lug holes were drilled. A provisional trial tibial component was placed and the knee was brought through range of motion. There was noted to be excellent extension and flexion. There was no significant instability. The patella was tracking without thumbs. A size 6mm polyethylene component provided the best range of motion and stability with less than 2mm gapping with medial and lateral stress and full extension without significant hyperextension. The tibial cut surface was fully exposed. The tibia was then sized as a 4. The tibia had been previously marked during trialing to correspond to the center of the tibial component to help with rotation. The trial was aligned to this emilee, approximately rotated to the medial 1/3rd of the tibial tubercle. The trial was pinned into place. The tibia was prepared with a reamer and a keel punch and lug holes. The knee was then brought into extension and the patella was measured as 22mm with a low spot of worn bone about 14mm in thickness. Using the patellar clamp and cut guide, this was resected to a flat surface with at least 13mm of thickness remaining, skimming the low spot laterally. The size 35 patella fit the best. This was oriented and then clamped into position. The lugs were drilled. The trial components were removed. The final components were opened on the back table. The periosteal and capsular tissues, especially posteriorly, around the knee were then systematically injected with a periarticular cocktail consisting of 246mg of Ropivacaine, 0.5mg of Epinephrine, 0.08mg of Clonidine, and 30mg of Ketorolac, diluted to 100cc. On the back table, with the implants opened, the cement was mixed. One batch of high viscosity cement was prepared with vacuum assistance. After the cement was ready a small amount was placed on the cut surface of the patella and the patellar button was clamped into position and held. While the cement was hardening, the cementless knee components were placed. Starting with the tibial component, the tibia was subluxed anteriorly and the lug holes of the component were lined up. The tibia was then impacted with an impactor and mallet until the tibial component was in contact with the tibia. Then, the femoral component was inserted. The lug holes were aligned and the component was impacted into position. The final polyethylene component was inserted. The knee was irrigated with Surgiphor Betadine solution. This was allowed to sit in the knee for 3 minutes and then it was thoroughly irrigated out with saline. After the cement had finally cured, approximately 15min, the clamp was removed from the patella and the knee was taken through range of motion. The patella was tracking with a no-thumbs technique. The capsule was then reapproximated with a No. 1 Vicryl at multiple locations. The capsule was finally closed with a No. 2 Stratafix, barbed suture. Deep tissues were then reapproximated with 0 Vicryl and 2-0 Vicryl. The skin was closed with a running 3-0 Monocryl in a subcuticular fashion. This was reinforced with skin glue. A Mepilex silver dressing was applied along with a [id number]-[id number] KODI wrap. A CryoCuff was applied. Ny was transferred to the hospital bed without difficulty an suffering no apparent complication. She has a good prognosis. Physical therapy will start today and without restrictions, weight-bearing as tolerated. Aspirin 81mg BID will be used for DVT prophylaxis.
== END 2023-06-18 14:40 | disposition home or self-care (01) ==
PROVIDERS: PCP Nurse Practitioner Family; Visit Provider Student in an Organized Health Care Education/Training Program
PROC: (CPT 27447; principal; 2023-06-18 09:30)
DX: M17.11 Unilateral primary osteoarthritis, right knee (principal); E66.9 Obesity, unspecified; I10 Essential (primary) hypertension; K21.9 Gastro-esophageal reflux disease without esophagitis; Z68.41 Body mass index [BMI] 40.0-44.9, adult
CPT/HCPCS: 27447; 20985; 76942; 97116; 97161; J0690; J1100; J2250; J2405

== ENCOUNTER 2023-07-03 13:25 | Outpatient (CLI) | payer OTHER, SELFPAY ==
--- NOTE | 2023-07-03 10:00 | DI.RAD_ITS ---
Exam(s) XR STANDING ALIGNMENT XR KNEE RT 1V EXAM: XR STANDING ALIGNMENT and XR knee RT 1 V CLINICAL HISTORY: 1ST POST OP R TKA. TECHNIQUE: 2D digital imaging was performed. Five images were obtained. COMPARISON: CR XR STANDING ALIGNMENT from 03/27/2023 CR XR KNEE RT 1V from 07/03/2023 FINDINGS: BONES: The hips are well maintained. There are now bilateral total knee replacements. The orthopedi c hardware appears in good position. No lucencies are seen interval at the more recent right total k nee replacement. There is soft tissue swelling around the knee. The ankles are well maintained.Ther e is no significant leg length discrepancy. SOFT TISSUE: Normal. IMPRESSION: Stable bilateral total knee replacements. DATA REPOSITORY: RADIATION DOSE DELIVERED:
== END 2023-07-03 13:26 | disposition home or self-care (01) ==
LOC: DIORS 13:25
PROVIDERS: PCP Nurse Practitioner Family; Visit Provider Student in an Organized Health Care Education/Training Program
DX: Z96.651 Presence of right artificial knee joint (principal); Z47.1 Aftercare following joint replacement surgery
CPT/HCPCS: 73560; 77073

== ENCOUNTER 2024-05-24 15:46 | Outpatient (CLI) | payer OTHER, SELFPAY ==
--- NOTE | 2024-05-24 08:45 | DI.RAD_ITS ---
Exam(s) XR KNEE LT 2V AP,LAT EXAM: XR KNEE LT 2V AP,LAT CLINICAL HISTORY: ANNUAL F/U L TKA. TECHNIQUE: 2D digital imaging was performed. Three images were obtained. AP and lateral views were obtained. COMPARISON: CR XR KNEE LT 1V from 03/27/2023 CR XR STANDING ALIGNMENT from 07/03/2023 FINDINGS: BONES: There are stable post operative changes of a left total knee replacement present. No fracture or dislocation. JOINTS: The orthopedic hardware is in good position. No evidence of hardware loosening. SOFT TISSUE: Normal. IMPRESSION: Stable left total knee replacement. DATA REPOSITORY: RADIATION DOSE DELIVERED:
--- NOTE | 2024-05-24 08:45 | DI.RAD_ITS ---
Exam(s) XR KNEE RT 2V AP,LAT EXAM: XR KNEE RT 2V AP,LAT CLINICAL HISTORY: ANNUAL F/U R TKA. TECHNIQUE: 2D digital imaging was performed. Two images were obtained. AP and lateral views were ob tained. COMPARISON: DX XR KNEE 4V RT* from 03/21/2022 CR XR KNEE RT 1V from 07/03/2023 CR XR STANDING ALIGNMENT from 07/03/2023 FINDINGS: BONES: There are stable post operative changes of a right total knee replacement present. No fractur e or dislocation. JOINTS: The orthopedic hardware is in good position. No evidence of hardware loosening. SOFT TISSUE: Normal. IMPRESSION: Stable right total knee replacement. DATA REPOSITORY: RADIATION DOSE DELIVERED:
--- NOTE | 2024-05-24 09:30 | DI.RAD_ITS ---
Exam(s) XR THUMB RT EXAM: XR THUMB RT CLINICAL HISTORY: eval R thumb CMC OA. TECHNIQUE: 2D digital imaging was performed of the right finger. Three views were obtained. PA/AP, oblique, and lateral views were obtained. COMPARISON: No exams were available for comparison FINDINGS: BONES: No acute fracture is present. No bony destructive lesion is seen. JOINTS: Moderately severe degenerative changes are present particularly at the 1st CMC joint. Findin gs are characterized by joint space narrowing and osteophytes. More moderate degenerative changes ar e seen at the interphalangeal joint of the thumb. The 1st MCP joint is well maintained. SOFT TISSUE: Normal. IMPRESSION: Osteoarthritis of the thumb as described above. DATA REPOSITORY: RADIATION DOSE DELIVERED:
--- NOTE | 2024-05-24 09:30 | DI.RAD_ITS ---
Exam(s) XR THUMB LT EXAM: XR THUMB LT EXAM DATE/TIME: CLINICAL HISTORY: eval L thumb CMC OA. TECHNIQUE: 2D digital imaging was performed of the left finger. Three views were obtained. PA/AP, oblique, and lateral views were obtained. COMPARISON: None. FINDINGS: BONES: No acute fracture is present. No bony destructive lesion is seen. JOINTS: Moderate degenerative changes are seen at the 1st CMC joint characterized by joint space narr owing and osteophytes. The metacarpophalangeal joint is well maintained. There are mild degenerativ e changes seen at the interphalangeal joint of the thumb. SOFT TISSUE: Normal. IMPRESSION: Osteoarthritis of the thumb particularly at the 1st CMC joint. DATA REPOSITORY: RADIATION DOSE DELIVERED:
== END 2024-05-24 15:47 | disposition home or self-care (01) ==
LOC: DIORS 15:46
PROVIDERS: PCP Nurse Practitioner Family; Visit Provider Student in an Organized Health Care Education/Training Program
DX: M18.0 Bilateral primary osteoarthritis of first carpometacarpal joints; Z96.653 Presence of artificial knee joint, bilateral
CPT/HCPCS: 73140; 73560

== ENCOUNTER 2025-06-10 09:53 | Outpatient (CLI) | payer MEDICARE, SELFPAY ==
--- NOTE | 2025-06-10 09:00 | DI.RAD_ITS ---
Exam(s) XR KNEE RT 2V AP,LAT EXAM: XR KNEE RT 2V AP,LAT CLINICAL HISTORY: ANNUAL F/U R TKA. TECHNIQUE: 2D digital imaging was performed. COMPARISON: CR XR KNEE RT 2V AP,LAT from 05/24/2024 FINDINGS: Two views There is stable position alignment of the components of the prosthesis. No fracture or loosening evident. IMPRESSION: Stable satisfactory appearance, unchanged from images of 05/24/2024. DATA REPOSITORY: RADIATION DOSE DELIVERED:
--- NOTE | 2025-06-10 09:00 | DI.RAD_ITS ---
Exam(s) XR KNEE LT 2V AP,LAT EXAM: XR KNEE LT 2V AP,LAT CLINICAL HISTORY: ANNUAL F/U L TKA. TECHNIQUE: 2D digital imaging was performed. COMPARISON: CR XR KNEE RT 2V AP,LAT from 06/10/2025 FINDINGS: Two views There is stable position and alignment of the components of the knee prosthesis. No fracture or loosening evident. IMPRESSION: Stable satisfactory appearance DATA REPOSITORY: RADIATION DOSE DELIVERED:
== END 2025-06-10 09:54 | disposition home or self-care (01) ==
LOC: DIORS 09:53
PROVIDERS: PCP Nurse Practitioner Family; Visit Provider Physician Assistant
DX: M18.11 Unilateral primary osteoarthritis of first carpometacarpal joint, right hand (principal); M18.12 Unilateral primary osteoarthritis of first carpometacarpal joint, left hand; Z96.653 Presence of artificial knee joint, bilateral
CPT/HCPCS: 99214; 73560

== ENCOUNTER → 2025-06-27 13:05 | Outpatient (BNVA) | payer MEDICARE, SELFPAY | PROVIDERS: PCP Nurse Practitioner Family; Referring Provider Nurse Practitioner Family; Visit Provider Student in an Organized Health Care Education/Training Program ==

== ENCOUNTER 2025-07-06 12:57 | Day surgery (SDC) | payer MEDICARE, SELFPAY ==
[2025-07-06 13:20] VITALS: BP 157/88; PULSE 69; RESP 16; TEMP 36.4; O2SAT 96
--- NOTE | 2025-07-06 13:52 | W.ANESPRE ---
General Info Date of Service Date Performed: 07/06/25 Height: 5 ft 0.5 in Weight: 108.1 kg Body Mass Index (BMI): 45.8 Surgical Procedure: Operation Date: 07/06/25 15:25 Proposed Procedure Side Surgeon p CMC Arthroplasty Right Felix Qureshi MD Meds Allergies and Home Medications Allergies Allergy/AdvReac Type Severity Reaction Status Date / Time No Known Allergies Allergy Verified 07/06/25 13:46 Home Medication ?Medication ?Instructions ?Recorded chlorthalidone 25 mg tablet 25 mg PO DAILY 01/23/23 evening primrose oil 500 mg capsule 1,000 mg PO DAILY 01/23/23 fluoxetine 40 mg capsule 60 mg PO DAILY 01/23/23 lisinopril 20 mg tablet 20 mg PO DAILY 01/23/23 omega-3 fatty acids 1,000 mg 1,000 mg PO DAILY 01/23/23 capsule omeprazole 20 mg capsule,delayed 20 mg PO .QOD 01/23/23 release potassium chloride 10 mEq 10 meq PO DAILY 01/23/23 capsule,extended release acetaminophen 500 mg tablet 1,000 mg (2 x 500 mg) PO TID #90 06/18/23 tabs meloxicam 15 mg tablet 15 mg PO DAILY 08/04/23 Current Visit Medications: Current Medications Generic Name Dose Route Start Last Admin Trade Name Freq PRN Reason Stop Dose Admin Acetaminophen 1,000 mg 07/06/25 06:00 Acetaminophen 500 Mg Tab PO 07/06/25 23:59 PREOP NEPTALI Celecoxib 400 mg 07/06/25 06:00 Celecoxib 200 Mg Cap PO 07/06/25 23:59 PREOP NEPTALI Ringer's Solution 1,000 mls @ 80 mls/hr 07/06/25 06:00 IV 07/06/25 23:59 INFUSION NEPTALI Cefazolin Sodium/Dextrose 2 gm in 50 mls @ 100 mls/hr 07/06/25 06:00 Ancef Duplex IVPB 07/06/25 23:59 PREOP NEPTALI IV Miscellaneous Supplies 1 each 07/06/25 06:00 Iv Access IV 07/06/25 23:59 DIRECTED NEPTALI Sodium Chloride 0 ml 07/06/25 06:00 Normal Saline Flush 10 Ml Syr IV 07/06/25 23:59 PRN PRN Sodium Chloride 0 ml 07/06/25 06:00 Normal Saline 10 Ml Vial IJ 07/06/25 23:59 DIRECTED PRN Sterile Water 0 ml 07/06/25 06:00 Water,Injection,Sterile 10 Ml Vial IJ 07/06/25 23:59 DIRECTED PRN PFSH Active Problems Active Problems: Problem Status Onset Code Arthritis of carpometacarpal (CMC) joint of right thumb Acute M18.11 Arthritis of carpometacarpal (CMC) joint of left thumb Acute M18.12 History of total right knee replacement Acute 06/18/23 Z96.651 Hypertension Chronic I10 Depression Chronic F32.A Obesity Chronic E66.9 GERD (gastroesophageal reflux disease) Chronic K21.9 Medical History Medical History Comments:: Per preop note: Pt. stated when she had her hernia repair, she was told it was hard to wake her up Surgical History Surgical History Hx of right breast implant History of left knee replacement (03/12/23) Hx of hernia repair Hx of appendectomy Hx of cholecystectomy History of [facility] Tobacco Smoking/Tobacco Use Status: Never Alcohol Alcohol Intake: current Alcohol intake frequency: holidays/special occasions only Alcohol type: hard liquor Substance Use Substance use: Never Substance use type: does not use Vital Signs and Lab Results Vital Signs Most Recent Vital Signs in EMR: Most Recent Vital Signs Temp Pulse Resp BP Pulse Ox 36.4 C L 69 16 157/88 H 96 07/06/25 13:20 07/06/25 13:20 07/06/25 13:20 07/06/25 13:20 07/06/25 13:20 Anesthesia Assessment and Plan Anesthesia History Personal History: No History of Anesthesia Complications Family History: No Family History of Anesthesia Complications Exercise Tolerance Exercise Tolerance: Metabolic Equivalents>4 Cardiac & Pulmonary Exam Cardiac Exam: Normal S1/S2 Heart Sounds Pulmonary Exam: Clear Bilateral Breath Sounds Implantable Cardiac Device Does patient have a Pacemaker or an ICD?: No Airway Exam Known Difficult Airway: No Mallampati Class: 1 Mouth Opening: Normal (> 3cm) Thyromental Distance: Greater than 3 cm Neck Range of Motion: Full ROM Neck Circumference: Normal Teeth Condition: Normal Dentition ASA Classification ASA Score: ASA 3 Emergency Case?: No NPO Status NPO Status: NPO Clears >2 hours, Solids >8 hours Anesthesia Plan Resuscitation Status: Full Code Anesthesia Technique: General Anesthesia Airway Planned: Natural Airway Pain Management: Surgeon and patient request nerve block Monitors Used: Standard Monitors
[2025-07-06 13:53] VITALS: BMI 45.8
--- NOTE | 2025-07-06 13:55 | W.PREOPHP ---
Assessment and Plan Assessment and plan (1) Arthritis of carpometacarpal (CMC) joint of right thumb: Status: Acute Assessment and plan: Ny is a 65-year-old female with known thumb CMC arthritis affecting both hands although worse on the right side. She is here today for thumb CMC arthroplasty, in the form of trapezial resection with suture suspension plasty. I reviewed the technical details. I discussed the risk to include bleeding, infection, pain, stiffness, damage to nerves and vessels, subsidence, need for repeat procedures. Despite these risks, she elects to proceed. History of Present Illness History of Present Illness Chief Complaint: Bilateral Thumb CMC arthritis Narrative: Ny is a 65-year-old female who has known bilateral thumb CMC arthritis. Her right side is most problematic. She has failed nonoperative options and continues have pain about the thumbs with all daily activities. She is here today for right thumb CMC arthroplasty. She has no new medical concerns. No recent illness. No chest pain or shortness of breath. Review of Systems All systems reviewed & are unremarkable except as noted in HPI and below PFSH All Active Problems Arthritis of carpometacarpal (CMC) joint of right thumb (Acute) Arthritis of carpometacarpal (CMC) joint of left thumb (Acute) History of total right knee replacement (Acute 06/18/23) Hypertension (Chronic) Depression (Chronic) Obesity (Chronic) GERD (gastroesophageal reflux disease) (Chronic) Surgical History Hx of right breast implant History of left knee replacement (03/12/23) Hx of hernia repair Hx of appendectomy Hx of cholecystectomy History of [facility] Social History Smoking/Tobacco Use Status: Never Smoking risk assessment performed?: Yes Alcohol Intake: current Alcohol Intake frequency: holidays/special occasions only Alcohol type: hard liquor Drug use: Never Substance use type: does not use Housing: house Do you feel safe at home: Yes Do you feel safe in your relationship?: Yes Additional Social history: son lives with her Meds Allergies and Home Medications Allergies Allergy/AdvReac Type Severity Reaction Status Date / Time No Known Allergies Allergy Verified 07/06/25 13:46 Home Medications ?Medication ?Instructions ?Recorded ?Confirmed ?Type chlorthalidone 25 mg tablet 25 mg PO DAILY 01/23/23 07/06/25 History evening primrose oil 500 mg capsule 1,000 mg PO DAILY 01/23/23 07/06/25 History fluoxetine 40 mg capsule 60 mg PO DAILY 01/23/23 07/06/25 History lisinopril 20 mg tablet 20 mg PO DAILY 01/23/23 07/06/25 History omega-3 fatty acids 1,000 mg 1,000 mg PO DAILY 01/23/23 07/06/25 History capsule omeprazole 20 mg capsule,delayed 20 mg PO .QOD 01/23/23 07/06/25 History release potassium chloride 10 mEq 10 meq PO DAILY 01/23/23 07/06/25 History capsule,extended release acetaminophen 500 mg tablet 1,000 mg (2 x 500 mg) PO TID #90 06/18/23 07/06/25 Rx tabs meloxicam 15 mg tablet 15 mg PO DAILY 08/04/23 07/06/25 History Exam Const General: cooperative, healthy appearing, comfortable and no acute distress Resp Effort & Inspection: normal respiratory effort Auscultation: clear to auscultation bilaterally Cardio Rate: regular rate Rhythm: regular rhythm Results Last Vital Signs Temp 36.4 C L 07/06/25 13:20 Pulse 69 07/06/25 13:20 Resp 16 07/06/25 13:20 BP 157/88 H 07/06/25 13:20 Pulse Ox 96 07/06/25 13:20
--- NOTE | 2025-07-06 14:00 | DI.RAD_ITS ---
Exam(s) XR HAND RT LIMITED EXAM: XR HAND RT LIMITED CLINICAL HISTORY: Arthritis of carpometacarpal (CMC) joint of right. TECHNIQUE: 2D and realtime digital imaging was performed. COMPARISON: CR XR THUMB LT from 05/24/2024 FINDINGS: Please see procedure note for details. Fluoro time: 1seconds RADIATION DOSE DELIVERED: Carar=0.0015 mGy
[2025-07-06] MEDS: Celecoxib 200 MG CAP 400 MG PO (14:04)
[2025-07-06] MEDS: Acetaminophen 500 MG TAB 1000 MG PO (14:04)
[2025-07-06] MEDS: Lactated Ringers 1,000 ML 80 ML IV (14:05)
[2025-07-06 14:15] VITALS: BP 141/95; PULSE 65; RESP 14; TEMP 36.3; O2SAT 97
--- NOTE | 2025-07-06 14:34 | PDOC.DSDIS_ITS ---
Date of service: 07/06/25 Discharge Plan Disposition Patient Disposition: Home Condition: Good Discharge Details Reason For Visit: R CMC Arthroplasty Attending Provider: Felix Qureshi Primary Care Provider: Anna Mcfarlane Home Meds and New Rx's Prescriptions: New acetaminophen 500 mg tablet 1,000 mg PO TID Qty: 90 3RF oxycodone 5 mg tablet 5 mg PO Q8H MDD 15mg PRN (Reason: pain) Qty: 10 0RF Continued lisinopril 20 mg tablet 20 mg PO DAILY chlorthalidone 25 mg tablet 25 mg PO DAILY omeprazole 20 mg capsule,delayed release(DR/EC) 20 mg PO .QOD Rx Instructions: 20 mg orally; fluoxetine 40 mg capsule 60 mg PO DAILY potassium chloride 10 mEq capsule, extended release 10 meq PO DAILY evening primrose oil 500 mg capsule 1,000 mg PO DAILY Rx Instructions: give with meal/snack omega-3 fatty acids 1,000 mg capsule 1,000 mg PO DAILY meloxicam 15 mg tablet 15 mg PO DAILY Discontinued acetaminophen 500 mg tablet 1,000 mg PO TID Qty: 90 3RF Discharge Instructions Additional Instructions: Thumb CMC Discharge Instructions Activity: You should keep the hand/thumb elevated as much as possible for the first few days. You may use the other fingers as tolerated but avoid trying to do too much too soon. You may perform light activities with the splint in place. Dressing/Cast: Your splint should stay in place at all times. Do NOT get it wet. You may loosen the KODI wrap if you feel it is too tight and then rewrap more loosely. Medications: - You should take Tylenol and your meloxicam for baseline pain control. - You have Oxycodone for breakthrough pain. - You may apply ice over the thumb. Follow-up: 10-14 days Referrals: Felix Qureshi MD [ [facility] STAFF PHYSICIAN, Orthopaedic Surgical] Equipment/Supplies: Sling Activity:: Elevate Remove Dressings/Wound Care:: Do Not Remove Shower/Bathe:: Cover Diet:: As Tolerated Discharge Orders Discharge Orders: Discharge Order (Routine); Ordered 07/06/25 Ordered By: Guanaco Campos DS: Diagnosis Discharge Diagnosis (1) Arthritis of carpometacarpal (CMC) joint of right thumb: Status: Acute
[2025-07-06] MEDS: ceFAZolin 2 GM/50 ML BAG IVPB (14:35)
--- NOTE | 2025-07-06 14:37 | ROE_ITS ---
Operative Note Operative Note PRE-OP DIAGNOSIS: Right Thumb CMC Arthritis POST-OP DIAGNOSIS: same PROCEDURE: Right trapezial resection arthroplasty with suture suspensionplasty SURGEON: Felix Qureshi ANESTHESIA TYPE: General LMA/ETT Refer to Anesthesia Record ESTIMATED BLOOD LOSS: 0 PATHOLOGY: none sent TOURNIQUET TIME: 32 COMPLICATIONS: None Patient was transported to: same day Patient's condition: stable Indications: Leslye is a 65 year old female who has had symptoms of thumb CMC arthritis with pain and decreased mobility. Nonoperative treatment options had been trialed. Given their failure, I offered operative intervention. I reviewed the technical details. I reviewed the risk of the procedure to include bleeding, infection, pain, stiffness, instability, subsidence, damage to neighboring arteries, damage to the superficial radial nerve, and weakness. Despite these risks, the patient elected to proceed. Findings: There is notable arthrosis between the trapezium and the first metacarpal. There are large osteophytes around the entirety of the trapezium. Procedure Description: Ny was greeted in the preoperative holding area. Name and surgical site were confirmed. The history and physical was completed. The consent was reviewed the patient and signed. She was taken back to the operating room. The patient was placed and monitored anesthesia care. The right hand was then prepped with ChloraPrep and draped in a standard fashion after a nonsterile tourniquet was placed high up onto the arm. Prophylactic antibiotics in the form of cefazolin were administered. A timeout was performed for safe surgery. The surgical site was drawn on the skin overlying the dorsal radial border of the wrist. The planned surgical field was anesthetized with 0.25% bupivacaine with epinephrine. The limb was exsanguinated and the tourniquet was inflated where it stayed for 45 minutes. A 3 cm incision was made longitudinally over the radial wrist from the level of the radial styloid to just past the base of the first metacarpal. The skin was incised only. The deep tissue and subcutaneous fat was dissected with a tenotomy scissors trying to protect branches of the superficial radial nerve. Any branches that were identified were retracted out of the way. The first compartment extensor tendons were then identified and the first extensor compartment was released. The interval between EPL and EPB was identified. The base of the first metacarpal was palpated. A needle was placed into the joint between the first metacarpal and the trapezium. A single x-ray was used to confirm appropriate positioning. The capsule of the trapezium was then incised. The radial border of the bone was identified. Soft tissues around trapezium were dissected bluntly to allow relaxation of vital arterial structures traversing the trapezium. Using a [place] blade the capsule was elevated off the trapezium in a subperiosteal fashion. Once it appeared to have all the capsular attachments released, the trapezium was then removed using a rongeur. The wound was inspected to make sure all portions of the trapezium were removed. X-ray was used to confirm appropriate removal of all bony fragments. The wound was then thoroughly irrigated. Using a 2-0 FiberWire then performed a suture suspensionplasty. This was done by incorporating capsule and attachments of the APL at the base of the first metacarpal and creating a sling connected to the deep flexor carpi radialis tendon seen traversing deep within the wound towards the second metacarpal. This was done twice to create a crossing network of 2-0 suture. This was then tied overlying the base of the first metacarpal making sure not to over tighten and hourglass the tendons. This provided support to the first metacarpal to prevent any excessive subsidence. The tourniquet was then released. There is no significant bleeding. The capsule of the trapezium was then reapproximated with a 2-0 Vicryl. The skin was closed with buried 3-0 Vicryl and subcuticular 4-0 Monocryl, reinforced with skin glue. The hand was dressed with 4 x 4's, Kerlex and KODI to create a soft, thumb spica splint. All counts were correct. Patient was transferred back to [facility] in a stable condition. Date of Procedure: 07/06/25
--- NOTE | 2025-07-06 14:53 | W.ANESNERVE ---
Nerve Block Single Injection Procedure Date and Time Date Performed: 07/06/25 Procedure Start: 14:15 Location Where Procedure Performed Procedure Location: Day Surgery Unit Reason Performed: Postoperative Analgesia Requesting Provider: Felix Qureshi Timeout Performed Timeout Performed: Yes Monitoring Used ECG, Blood Pressure, SpO2 and See EMR for corresponding vital signs Sterility Sterility: Hand Hygiene, Surgical Cap, Surgical Mask, Sterile Gloves and Chlorhexidine Sedation Given During Procedure Sedation Given (Indicate Dose Given): Versed IV Dose:: 2mg Patient Mental Status Patient Mental Status: Sedate with meaningful communication Nerve Block 1st Nerve Block: Laterality: Right Block Type: Median Ultrasound Image Saved?: No Needle / Catheter Used: 80mm SonoPlex II Local Anesthetic Bolus (Indicate Dose Given): Lidocaine used for local infiltration of skin Additives (Indicate Dose Given): None Ultrasound: Sterile probe cover and gel used Nerve Stimulator: Not Used Paresthesia: None Procedure Tolerated: No Complications Procedure Outcome: Unsuccessful Procedure Comment: Poor nerve visualization. Decision made to abort procedure. Patient verbalized understanding. Performed By: Gem Onofre
[2025-07-06] MEDS: Bupivacaine 0.25% Pres-Free 30 ML VIAL (14:59)
[2025-07-06 15:40] VITALS: BP 171/77; PULSE 62; RESP 16; TEMP 36.3; O2SAT 99
--- NOTE | 2025-07-06 15:42 | W.ANESPOSTOP ---
Postoperative Evaluation Date, Time and Location Date Performed: 07/06/25 Time Performed: 15:42 Patient Location: Day Surgery Unit Vital Signs Most Recent Imported Vital Signs: Most Recent Vital Signs Temp Pulse Resp BP Pulse Ox 36.3 C L 65 14 141/95 H 97 07/06/25 14:15 07/06/25 14:15 07/06/25 14:15 07/06/25 14:15 07/06/25 14:15 Pain Score Most Recent Pain Score: Most Recent Pain Score Pain Level 0 07/06/25 14:15 Assessment Mental Status: Awake (Alert & Oriented to Patient Baseline) Airway and Respiratory Function: Patent airway with normal (patient baseline) respiratory exam Cardiovascular Function: Hemodynamically Stable Hydration Status: Adequately Hydrated Nausea & Vomiting: No Nausea or Vomiting Pain: Pt. Denies Any Pain Peripheral Nerve Block: Patient did not receive a nerve block
[2025-07-06 16:05] VITALS: BP 170/65; PULSE 67; RESP 16; TEMP 36.2; O2SAT 95
== END 2025-07-06 16:30 | disposition home or self-care (01) ==
PROVIDERS: PCP Nurse Practitioner Family; Visit Provider Student in an Organized Health Care Education/Training Program
PROC: (CPT 25448; principal; 2025-07-06 15:15)
DX: M18.11 Unilateral primary osteoarthritis of first carpometacarpal joint, right hand (principal); I10 Essential (primary) hypertension; K21.9 Gastro-esophageal reflux disease without esophagitis; G89.18 Other acute postprocedural pain; M25.541 Pain in joints of right hand
CPT/HCPCS: 25448; 64450; 76000; 76942; 73120; J0665; J0690; J1100; J2003; J2250; J2405; J2704; J3010

== ENCOUNTER → 2025-07-18 10:08 | Outpatient (BNVA) | payer MEDICARE, SELFPAY | PROVIDERS: PCP Nurse Practitioner Family; Referring Provider Nurse Practitioner Family; Visit Provider Physician Assistant | DX: Z47.89 Encounter for other orthopedic aftercare (principal); M18.11 Unilateral primary osteoarthritis of first carpometacarpal joint, right hand | CPT/HCPCS: 99024 ==

== ENCOUNTER → 2025-08-15 10:47 | Outpatient (BNVA) | payer MEDICARE, SELFPAY | PROVIDERS: PCP Nurse Practitioner Family; Referring Provider Nurse Practitioner Family; Visit Provider Physician Assistant | DX: Z47.89 Encounter for other orthopedic aftercare (principal); M18.0 Bilateral primary osteoarthritis of first carpometacarpal joints | CPT/HCPCS: 99024 ==

== ENCOUNTER 2025-08-31 14:46 | Outpatient (CLI) | payer MEDICARE, SELFPAY ==
--- NOTE | 2025-08-31 14:00 | DI.RAD_ITS ---
Exam(s) XR SHOULDER RT COMPLETE 2+V EXAM: XR SHOULDER RT COMPLETE 2+V CLINICAL HISTORY: RIGHT SHOULDER PAIN. TECHNIQUE: 2D digital imaging was performed of the right shoulder. Three images were obtained. Grashey and axillary views were obtained. COMPARISON: CR XR SHOULDER LT COMPLETE 2+V from 08/31/2025 FINDINGS: BONES: No acute fracture is present. No bony destructive lesion is seen. JOINTS: No dislocation present. The joint spaces are well maintained. SOFT TISSUE: Normal. IMPRESSION: There is no acute abnormality. DATA REPOSITORY: RADIATION DOSE DELIVERED:
--- NOTE | 2025-08-31 14:00 | DI.RAD_ITS ---
Exam(s) XR SHOULDER LT COMPLETE 2+V EXAM: XR SHOULDER LT COMPLETE 2+V CLINICAL HISTORY: LEFT SHOULDER PAIN. TECHNIQUE: 2D digital imaging was performed of the left shoulder. Two images were obtained. Grashey and axillary views were obtained. COMPARISON: No exams were available for comparison FINDINGS: BONES: No acute fracture is present. No bony destructive lesion is seen. JOINTS: No dislocation present. The joint spaces are well maintained. SOFT TISSUE: Normal. IMPRESSION: No gross abnormality is identified. DATA REPOSITORY: RADIATION DOSE DELIVERED:
== END 2025-08-31 14:47 | disposition home or self-care (01) ==
LOC: DIORS 14:46
PROVIDERS: PCP Nurse Practitioner Family; Referring Provider Nurse Practitioner Family; Visit Provider Student in an Organized Health Care Education/Training Program
DX: M25.511 Pain in right shoulder (principal); M25.512 Pain in left shoulder; M35.3 Polymyalgia rheumatica
CPT/HCPCS: 99214; 36415; 85027; 85652; 86200; 73030; 86038; 86140; 86431

== ENCOUNTER 2025-08-31 15:14 | Outpatient (CLI) | payer MEDICARE, SELFPAY ==
[2025-08-31 15:13] LABS: HCT 43.6 % (36.0-46.0); HGB 14.5 g/dL (11.2-15.7); MCH 29.8 pg (27.0-33.0); MCHC 33.3 % (32.0-36.0); MCV 90 fL (80-95); MPV 10.4 fL (8.0-11.0); Platelet Count 318 10^3/uL (130-400); RBC 4.86 10^6/uL (3.93-5.22); RDW 13.2 % (11.7-14.6); RDW-SD 43.3 fL; WBC 8.79 10^3/uL (4.4-10.8)
[2025-08-31 15:23] LABS: ESR 17 mm/hr (0-30)
[2025-08-31 15:45] LABS: C-Reactive Protein 0.53 mg/dL (<or=0.5)
== END 2025-08-31 15:15 | disposition home or self-care (01) ==
LOC: LBO 15:14
PROVIDERS: PCP Nurse Practitioner Family; Visit Provider Student in an Organized Health Care Education/Training Program
DX: M35.3 Polymyalgia rheumatica (principal)
CPT/HCPCS: 36415; 85027; 85652; 86200; 86038; 86140; 86431